=== PATIENT | female | born 2000 | race Caucasian/White ===

== ENCOUNTER 2020-04-20 23:24 | Emergency (ER) | payer OTHER ==
[~2020-04-20] VITALS: Ht 165.1 cm; Wt 56.3 kg
--- NOTE | 2020-04-21 00:23 | REPVR ---
PROCEDURE INFORMATION: Exam: CT Head Without Contrast Exam date and time: 04/20/2020 11:56 PM Age: 19 years old Clinical indication: Pain; Headache; Migraine; Aura effect not specified; Additional info: [facility] TECHNIQUE: Imaging protocol: Computed tomography of the head without contrast. Radiation optimization: All CT scans at this facility use at least one of these dose optimization techniques: automated exposure control; mA and/or kV adjustment per patient size (includes targeted exams where dose is matched to clinical indication); or iterative reconstruction. COMPARISON: No relevant prior studies available. FINDINGS: Brain: Normal. No hemorrhage. Unremarkable white matter. No mass effect. Ventricles: Normal. No ventriculomegaly. Bones/joints: Unremarkable. No acute fracture. Sinuses: Visualized sinuses are unremarkable. No fluid levels. Mastoid air cells: Visualized mastoid air cells are well aerated. Soft tissues: Unremarkable. IMPRESSION: No acute intracranial abnormality. Electronically signed by: Jason Vega On 04/21/2020 00:22:31 AM
[2020-04-21] MEDS ORDERED: KETOROLAC 60MG 2ML VIAL IM ONE (00:30)
[2020-04-21] MEDS ORDERED: KETO10TAB PO (01:45)
[2020-04-21 01:52] VITALS: BP 114/75
== END 2020-04-21 01:54 | disposition home or self-care (01) ==
LOC: M ED 23:24
DX: G43.909 Migraine, unspecified, not intractable, without status migrainosus (principal); F17.200 Nicotine dependence, unspecified, uncomplicated
CPT/HCPCS: 70450; 99283; J1885

== ENCOUNTER 2021-03-04 23:39 | Outpatient (CLI) | payer OTHER ==
[~2021-03-04] VITALS: Ht 162.6 cm; Wt 66.8 kg
[~2021-03-04 23:39] MED LIST: KETO10TAB PO
[2021-03-05] VITALS: BP 128/81
[2021-03-05] MEDS ORDERED: PRENTAB9 PO (00:22)
--- NOTE | 2021-03-05 02:18 | IPNPDOC ---
Subjective Date Seen The patient was seen on 03/05/21. Subjective Chief Complaint/HPI 20yo presenting at 39w6d by LMP c/w 1TM US with ALIX 12 Feb with complaint of increasing contraction pain. States she has had intermittent episodes of painful contractions that worsened this evening, and increased in frequency occurring about every 4 min. She otherwise denies LOF, VB or discharge. +GFM. General: Denies: ROS Unobtainable, Chills, Night Sweats, Fatigue, Malaise, Normal Appetite, Other Symptoms Constitutional: Denies: Chills, Fever, Malaise, Night Sweats, Weakness, Fatigue, Weight Loss, Lethargy, Other Eyes: Denies: Pain, Vision change Cardiovascular: Denies: Chest Pain, Palpitations, Orthopnea, Paroxysmal Noc. Dyspnea, Edema, Lt Headedness, Other Symptoms Gastrointestinal: Denies: Nausea, Vomiting, Abdominal Pain, Diarrhea, Cons tipation, Melena, Hematochezia, Other Symptoms Genitourinary: Denies: Dysuria, Frequency, Incontinence, Hematuria, Retention, Other Symptoms Neurological: Denies: Weakness, Numbness, Incoordination, Change in speech, Confusion, Seizures, Other Symptoms Objective Physical Examination General Exam: Positive: Alert, No Acute Distress Chest Exam: Positive: Normal air movement Heart Exam: Positive: Rate Normal Abdomen Exam: Positive: Other (gravid) Extremity Exam: Negative: Edema Other physical findings FHT: baseline initially in 140's, pt became tachycardic into 160's and had late deceleration at 0105. Continued monitoring x1 hr ith return to baseline in the 130's with mod variability and reactive. Paraje: ctx initially q2-3 min, decreasing to every 2-6 min while in triage SVE: 1-50/-2, membranes intact Assessment /Plan Assessment 20yo presenting at 39w6d for labor check. SVE 1-50/-2 with decreasing frequency and intensity of contractions while in triage. Offered recheck vs. D/c home with plan to return if contractions increase again. Pt electing to go home at this time. Return precautions given. Plan/VTE VTE Prophylaxis Ordered?: No VTE Exclusion Mechanical Proph: Other (triage visit) VS, I&O, 24H, Fishbone Vital Signs/I&O Vital Signs Date Time Temp Pulse Resp B/P (MAP) Pulse Ox O2 Delivery O2 Flow Rate FiO2 03/05/21 00:00 96.7 86 18 128/81 (97) NURA SILVEIRA M.D. Mar 05, 2021 02:18
== END 2021-03-05 02:14 | disposition home or self-care (01) ==
LOC: M LDO 23:39
PROVIDERS: ATTEND Obstetrics & Gynecology
DX: O47.1 False labor at or after 37 completed weeks of gestation (principal); Z3A.39 39 weeks gestation of pregnancy
CPT/HCPCS: 59025; G0378; G0463

== ENCOUNTER 2021-03-07 05:28 | Inpatient (IN) | payer OTHER ==
[2021-03-07] VITALS (16 sets, daily range): BP systolic 102–138; BP diastolic 57–82
[~2021-03-07 05:28] MED LIST changes: +PRENTAB9 PO
[2021-03-07] MEDS ORDERED: OXYTOCIN DRIP 30 UNITS in IV 1 EA IV PRN (07:10)
[2021-03-07] MEDS ORDERED: LIDOCAINE 1% MDV 20ML VIAL INFIL PRN (07:10)
--- NOTE | 2021-03-07 07:27 | HPEPDOC ---
Obstetrical History & Physical General Date of Admission Mar 07, 2021 at 07:11 History of Present Illness Ms. Amezquita is a 19yo at 40+2 presenting in early labor. She denied VB, LO F, decreased FM. She endorsed nausea. She denied diarrhea, cp, sob, f/c, urinary sx, corbett, visual changes. 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 Past Medical History Medical History migraines with aura varicella non-immune Surgical History: [place] teeth Family History Significant Family History: No pertinent family hx Social History Psychosocial History: No pertinent psych hx * Smoker: current smoker (vaping) Alcohol: Denies Drugs: denies Imunizations Tdap status: current Influenza Status: needs Allergies Coded Allergies: No Known Allergies (Unverified , 03/05/21) Medications Scheduled No.137/Iron/Folic Acd ( Vitamin Tablet) 1 Each Tablet, 1 TAB PO DAILY Physical Examination Physical Examination GENERAL: Alert and oriented times three. BREAST: . ABDOMEN: Gravid and non-tender to touch. FETUS: Is vertex (VTX) by sterile vaginal examination (SVE), fetus is vertex (VTX) by US HEART RATE: Regular rate and rhythm. LUNGS: Clear to auscultation (CTA). EXTREMITIES: No edema. Vital Signs/I&O Vital Signs Date Time Temp Pulse Resp B/P (MAP) Pulse Ox O2 Delivery O2 Flow Rate FiO2 03/07/21 05:33 98.2 73 18 130/60 (83) Laboratory Data 24H LABS Laboratory Tests 2 03/07/21 07:15: Serology Scanned Report Hepatitis B Testing Urine Culture: No Growth Pertinent Laboratoy Data Blood Type: O+ RBC Antibody Screen: Negative HIV: Negative Hepatitis B: Negative Rapid Plasma Reagin: Nonreactive Rubella: Immune Varicella: Nonreactive Chlamydia/Gonorrhea: Negative Group B Streptococcus: Negative Quad Screen Test: Declined Cystic Fibrosis: Declined Glucose Tolerance Test: 89 Anatomy Ultrasound Placenta Location: Anterior Normal Anatomy: Yes Estimated Weight (grams): 3100 Vaginal Examination Dilation: 5 cm Effacement: 90% Station: -2 Cervical Consistency: Soft Cervical Position: Middle Presentation: Cephalic presentation (by US) Assessment Variability: Decreased Accelerations: Present Decelerations: None Tocometer Contractions: Yes Frequency: regular Multi-drug resistant Organism: No history of MDRO Assessment/Plan Assessment Ms. Amezquita is a 19yo at 40+2 presenting in early labor. Her cervix changed from 3 to 5cm in 1.5h. CAT I NST. Normal VS. APC 1. varicella non-immune 2. migranes with aura 3. vaping during Rh pos. GBS neg. EFW 3100. Placenta anterior. Ceph by US. Plan Admit and orient. Senior Technical Trainer and consent. Diet: clears Group B Streptococcus (GBS) [negative]. Labs and intravenous (IV) per unit protocol. Counseled on Pitocin and induction of labor (IOL). Lactated Ringers (LR): PRN Anticipate [normal spontaneous delivery ()]. C-S as appropriate. PURA WILLOUGHBY DO Mar 07, 2021 07:27
[2021-03-07 07:40] LABS: HEMATOCRIT 35.7 % (36.0-47.0); HEMOGLOBIN 11.5 g/dl (12.0-15.5); MEAN CORPUSCULAR HEMOGLOBIN 30.5 pg (27.0-33.0); MEAN CORPUSCULAR HGB CONC 32.2 g/dl (32.0-36.5); MEAN CORPUSCULAR VOLUME 94.7 fl (80.0-96.0); PLATELET COUNT, AUTOMATED 317 10^3/uL (150-450); RED BLOOD COUNT 3.77 10^6/uL (4.00-5.40); WHITE BLOOD COUNT 11.8 10^3/uL (4.0-10.0)
[2021-03-07] MEDS ORDERED: ONDANSETRON 4MG/2ML VIAL IV SCH (08:00)
[2021-03-07] MEDS ORDERED: FENTANYL 2MCG/ML ROPIVACAINE 0.2% IN 0.9% NACL 100ML IVBAG As Ordered ONE (08:13)
[2021-03-07] MEDS ORDERED: EPIDURAL/PCA KEYS XX PRN (08:15)
[2021-03-07] MEDS ORDERED: ePHEDrine SULFATE 25 MG/5 ML(5MG/ML) SYRINGE IV PRN (08:15)
[2021-03-07] MEDS ORDERED: ONDANSETRON 4MG/2ML VIAL IV PRN (08:15)
[2021-03-07] MEDS ORDERED: diphenhydrAMINE 50MG/ML VIAL (J1200) IV PRN (08:15)
[2021-03-07] MEDS ORDERED: FENTANYL/ROPIVACAINE/NACL BAG 100 ML EPIDURAL SCH (08:15)
[2021-03-07] MEDS ORDERED: EPIDURAL COMMENT XX SCH (08:15)
[2021-03-07] MEDS ORDERED: REFRIGERATOR IV KEYS XX PRN (08:15)
[2021-03-07] MEDS ORDERED: LACTATED RINGER'S 1000 ML IV PRN (08:15)
[2021-03-07] MEDS ORDERED: NALOXONE INJ 0.4MG/1ML VIAL (J2310 PER 1MG) IV PRN (08:15)
[2021-03-07 09:33] LABS: CORD GAS ABE A -11.3; CORD GAS O2 SAT A 21.3 %; CORD GAS PCO2 A 53.8 mmHg; CORD GAS PH A 7.142 UNITS; CORD GAS PO2 A 16.6 mmHg; CORD GAS SBC A 14.2 MEQ/L; CORD GAS TCO2 A 19.6 MEQ/L
[2021-03-07 09:35] LABS: CORD GAS ABE V -8.9; CORD GAS HCO3 V 16.1 MEQ/L; CORD GAS O2 SAT V 81.8 %; CORD GAS PCO2 V 33.1 mmHg; CORD GAS PH V 7.306 UNITS; CORD GAS PO2 V 39.2 mmHg; CORD GAS SBC V 17.1 MEQ/L; CORD GAS TCO2 V 17.2 MEQ/L
[2021-03-07] MEDS ORDERED: ANUSOL HC CREAM 30GM TOP PRN (10:50)
[2021-03-07] MEDS ORDERED: ACETAMINOPHEN 500 MG TAB PO PRN (10:50)
[2021-03-07] MEDS ORDERED: ACETAMINOPHEN TAB 650MG DOSE (2X325MG) PO PRN (10:50)
[2021-03-07] MEDS ORDERED: DIBUCAINE 1% OINTMENT 30GM TOP PRN (10:50)
[2021-03-07] MEDS ORDERED: PROMETHAZINE 25 MG TAB PO PRN (10:50)
[2021-03-07] MEDS ORDERED: IBUPROFEN 600MG TAB PO PRN (10:50)
[2021-03-07] MEDS ORDERED: MEASLES,MUMPS,RUBELLA VACCINE INJ (MMR-II) (90707) SC SCH (10:50)
[2021-03-07] MEDS ORDERED: IBUPROFEN 800 MG TAB PO PRN (10:50)
[2021-03-07] MEDS ORDERED: METHYLERGONOVINE MALEATE 0.2 MG TAB PO PRN (10:50)
--- NOTE | 2021-03-07 18:17 | DNPDOC ---
[facility] Delivery Note Delivery Note Date of the procedure: 07 MAR 2021 Preoperative diagnosis: 1. 20 y/o at 40w2d 2. Active labor 3. GBS negative 4. O positive Postoperative diagnosis: 1. 20 y/o G1 now P1001 at 40w2d 2. Active labor 3. GBS negative 4. O positive 5. bradycardia 6. Nuchal cord x1 7. Bilateral periurethral lacerations 8. Right labial laceration 9. Second degree perineal laceration Procedure: VAVD Delivering Provider: VELMA Palafox, GERALD, BENJIE- Assistant Manager Of Operations Back-up: Dr. Dodie Andrew Anesthesia: Epidural EBL: 300 ml Specimens: Cord blood and cord gasses collected. Findings: Live female weighing 7 lb 4 oz, 3290 grams with Apgars of 9 and 9 at 1 and 5 minutes respectively. Complications: bradycardia Details of the procedure: The patient presented complaining of contractions and was found to be in active labor. Patient was 5 cm dilated and was then admitted to L&D. Labor progressed without Pitocin and membranes were ruptured spontaneously for clear fluid.. The patient progressed to fully dilated and entered the second stage of labor. heart tones were noted to be prolonged in the 60s-70s and Dr. Andrew was called to attend the delivery and to assess for VAVD vs pLTCS. While awaiting for Dr. Andrew, patient began to push. Once Dr. Andrew arrived the patient was assessed and consented and verbally agreed for a VAVD, at which point she began to push over an intact perineum. Please see the details of vacuum use in Dr. Rodrick napoles's note. The head was brought to using the vacuum by Dr. Andrew, at which point the vacuum was removed and I was able complete the delivery of the head. The nuchal cord x1 was noted. The rest of the infant was delivered. The infant was placed on maternal abdomen and the cord was doubly clamped and cut. The bacon skinner and NICU team were at the bedside and assessed the while on maternal abdomen. Cord blood was collected and a 3 vessel cord was noted. Manual exploration of the uterus was not performed. Uterine tone was firm. Perineum was inspected and bilateral periurethral lacerations, a right labial laceration, and second degree perineum were found. These were repaired with 2-0 chromic. Cervical exam was normal. Rectal exam was not noted. Sponge, instrument, and needle counts were correct. The patient tolerated the procedure well and is stable in recovery. Note was written and electronically signed by: VELMA Palafox CNM, BENJIE-ADRIANNA CHENG CNM Mar 07, 2021 10:35
[2021-03-07] MEDS: DOCUSATE SODIUM 100MG CAPSULE PO SCH (20:45)
[2021-03-08 06:00] VITALS: BP 112/70
[2021-03-08 07:25] LABS: HEMATOCRIT 29.1 % (36.0-47.0); HEMOGLOBIN 9.3 g/dl (12.0-15.5); MEAN CORPUSCULAR HEMOGLOBIN 30.8 pg (27.0-33.0); MEAN CORPUSCULAR VOLUME 96.4 fl (80.0-96.0); PLATELET COUNT, AUTOMATED 256 10^3/uL (150-450); RED BLOOD COUNT 3.02 10^6/uL (4.00-5.40); WHITE BLOOD COUNT 11.4 10^3/uL (4.0-10.0)
--- NOTE | 2021-03-08 07:34 | DNPDOC ---
[facility] Delivery Note Delivery Note OPERATIVE DELIVERY SUMMARY: Called to patient's room by GERALD Sanz due to FHT in 70's for several minutes. SVE C/C/+3. Patient quickly counseled on risks of procedure. position assessed and noted to be NANI. Vacuum applied along saggital suture, 2cm anterior to the posterior fontanel with careful attention t o avoid including maternal tissue. Suction applied to the green with onset of contractions. Gentle downward traction applied in conjunction with maternal pushing efforts, then gently rotated upward under pubic bone. Suction released in between each contraction. Maternal pushing efforts were very poor, however FHT auscultated in the 110's in between contractions, therefore continued efforts for vaginal delivery. Once head arrived at perineum, suction released and vacuum removed, and remainder of delivery completed by GERALD. One pop-off occurred during proceduer. See additional delivery note for further details. NURA SILVEIRA M.D. Mar 08, 2021 07:34
[2021-03-08] MEDS: PRENATAL VITAMINS CHEWABLE TABLET PO SCH (08:34)
[2021-03-08] MEDS: DOCUSATE SODIUM 100MG CAPSULE PO SCH ×2 (08:35→20:21)
[2021-03-08 18:56] VITALS: BP 116/75
[2021-03-09 06:18] VITALS: BP 120/59
--- NOTE | 2021-03-09 07:07 | OBDS ---
[facility] Obstetrical Discharge Sum. Obstetrical Discharge Summary Date: Mar 09, 2021 Delivery 20yo G1 now P1001 admitted in labor at term, progressed to complete and was noted to have bradycardia with poor maternal pushing efforts. Vacuum- assisted delivery performed as noted below. Details of the procedure: The patient presented complaining of contractions and was found to be in active labor. Patient was 5 cm dilated and was then admitted to L&D. Labor progressed without Pitocin and membranes were ruptured spontaneously for clear fluid.. The patient progressed to fully dilated and entered the second stage of labor. heart tones were noted to be prolonged in the 60s-70s and Dr. Andrew was called to attend the delivery and to assess for VAVD vs pLTCS. While awaiting for Dr. Andrew, patient began to push. Once Dr. Andrew arrived the patient was assessed and consented and verbally agreed for a VAVD, at which point she began to push over an intact perineum. Please see the details of vacuum use in Dr. Andrew's note. The head was brought to using the vacuum by Dr. Andrew, at which point the vacuum was removed and I was able complete the delivery of the head. The nuchal cord x1 was noted. The rest of the infant was delivered. The was placed on maternal abdomen and the cord was doubly clamped and cut. The environmental services technician and NICU team were at the bedside and assessed the while on maternal abdomen. Cord blood was collected and a 3 vessel cord was noted. Manual exploration of the uterus was not performed. Uterine tone was firm. Perineum was inspected and bilateral periurethral lacerations, a right labial laceration, and second degree perineum were found. These were repaired with 2-0 chromic. Cervical exam was normal. Rectal exam was not noted. Sponge, instrument, and needle counts were correct. The patient tolerated the procedure well and is stable in recovery. course uncomplicated. Patient ambulating, voiding without difficulty and tolerating regular diet. Reports minimal lochia. Breast pumping/bottle feeding and has minipill at home for contraception. PPD#2 exam: Vitals within normal limits Gen: AAOx3, NAD CV/Lungs: Regular rate, normal WOB Abdomen: U-2, firm Ext: no swelling or erythema Vital Signs Date Time Temp Pulse Resp B/P (MAP) Pulse Ox O2 Delivery O2 Flow Rate FiO2 7/16/21 06:18 98.8 75 20 120/59 (79) 03/08/21 18:56 97.3 73 16 116/75 (89) 98 Room Air 03/08/21 08:00 Room Air Current Medications Medications (Trade) Dose Ordered Sig/Hugo Route PRN Reason Start Time Stop Time Status Last Admin Dose Admin Acetaminophen (Tylenol Tab) 1,000 mg Q6HP PRN PO PAIN LEVEL 6-10 03/07/21 10:50 03/08/21 08:37 1,000 MG Docusate Sodium (Colace) 100 mg BID PO 03/07/21 21:00 03/08/21 20:21 100 MG Ibuprofen (Advil) 800 mg Q8HP PRN PO PAIN LEVEL 6-10 03/07/21 10:50 03/08/21 06:08 800 MG Prenat Multivit/ [place]/Iron/Folic Ac ( Vitamins) 1 tab DAILY PO 03/08/21 09:00 03/08/21 08:34 1 TAB A/P, Post Course List any complications Admission diagnosis: Labor at term Discharge diagnosis: same, s/p VAVD delivery Condition at Discharge: stable Discharge Instructions: home Activity: No heavy lifting and recommend pelvic rest x6wk Diet: regular Medications: motrin, tylenol prn pain Follow-up: 6wk PP visit NURA SILVEIRA M.D. Mar 09, 2021 07:07
[2021-03-09] MEDS: DOCUSATE SODIUM 100MG CAPSULE PO SCH (08:19)
[2021-03-09] MEDS: PRENATAL VITAMINS CHEWABLE TABLET PO SCH (08:19)
--- NOTE | 2021-03-09 11:20 | IPN ---
PROGRESS NOTE DATE: 03/08/2021 SUBJECTIVE: This lady is a 19-year-old, 2, now para 1, admitted at 40 and 2 weeks of gestation in early labor. She progressed in active labor, GBS negative, RH positive, had a prolonged bradycardia with a nuchal cord x1, had bilateral periurethral lacerations with a right labial laceration and a second degree perineal laceration. She progressed without Pitocin, delivered with a low vacuum a livebirth female , 7 lb, 4 oz, 3290 gm, Apgars of 9 and 9 in 1 and 5 minutes respectively. All the inspection of the vagina indicated the above named lacerations and tears to the vagina based on the delivery. All were repaired in the usual fashion. The uterus contracted well down under Pitocin, patient and baby tolerating procedure well. On her first day, we discussed phlebitis, cystitis, mastitis, endometritis and cellulitis, diet and exercise, pain management, perineal, breast and wound care. OBJECTIVE: The rest of the examination was unremarkable, normocephalic, atraumatic. Neck: Full range of motion. Pupils equal and reactive to light. Distal pulses are symmetric. No evidence of DVT, PE or superficial phlebitis. Chest is clear, bilateral bases, no wheezes or rhonchi. No CVA tenderness. Abdomen is soft. Four quadrant bowel sounds are noted. The perineum is intact. Uterus is 2 below. Lochia is moderate. Four quadrant bowel sounds are noted. No rashes, lesions or pruritus. No arthralgias, myalgias. No complaint of joint pain. No complaint of cough, wheeze, shortness of breath or dyspnea on exertion. No nausea, vomiting, diarrhea or constipation. No urgency or frequency. The patient is planning on discharge tomorrow, breast-feeding as well, mobilizing, passing gas and has no voice complaints. Her blood pressure today is 112/70, respirations 18, pulse 85 and temperature is 96.6. Her admitting hemoglobin was 11.5, hematocrit 35.7 and platelets were 317. Blood gases on the baby: The arterial was 7.14, base excess -11.3, venous pH 7.30, base excess -8.9. SUMMARY: Patient, the mother is doing well. Expectations are to machine pecan picker medications at [facility] on discharge and have a six week checkup with [facility]. All questions were answered, 20 minute discussion. [facility]
== END 2021-03-09 11:10 | disposition home or self-care (01) | DRG 768 ==
LOC: M LDO 05:28 → M LDI 07:11 → M OBS 13:49
PROVIDERS: ADMIT Obstetrics & Gynecology; ATTEND Obstetrics & Gynecology
PROC: 10D07Z6 Extraction of Products of Conception, Vacuum, Via Natural or Artificial Opening (ICD-10-PCS; principal; 2021-03-07)
PROC: 0UQM0ZZ Repair Vulva, Open Approach (ICD-10-PCS; 2021-03-07)
PROC: 0KQM0ZZ Repair Perineum Muscle, Open Approach (ICD-10-PCS; 2021-03-07)
PROC: 0HQ9XZZ Repair Perineum Skin, External Approach (ICD-10-PCS; 2021-03-07)
DX: O48.0 Post-term pregnancy (principal); Z37.0 Single live birth; Z3A.40 40 weeks gestation of pregnancy; O99.334 Smoking (tobacco) complicating childbirth; F17.290 Nicotine dependence, other tobacco product, uncomplicated; O76 Abnormality in fetal heart rate and rhythm complicating labor and delivery; O69.81X0 Labor and delivery complicated by cord around neck, without compression, not applicable or unspecified; O70.0 First degree perineal laceration during delivery; O71.82 Other specified trauma to perineum and vulva; O70.1 Second degree perineal laceration during delivery

== ENCOUNTER 2021-03-20 18:43 | Emergency (ER) | payer OTHER ==
[~2021-03-20] VITALS: Ht 162.6 cm; Wt 60.0 kg
[2021-03-20] MEDS ORDERED: IBUP-1114 PO (18:58)
[2021-03-20] MEDS ORDERED: ACET325T43 PO (18:58)
[2021-03-20 20:58] VITALS: BP 130/86
== END 2021-03-20 21:02 | disposition left against medical advice (07) ==
LOC: M ED 18:43
DX: Z53.21 Procedure and treatment not carried out due to patient leaving prior to being seen by health care provider (principal)

== ENCOUNTER 2021-05-03 14:00 | Emergency (ER) | payer OTHER ==
[~2021-05-03] VITALS: Ht 167.6 cm; Wt 57.2 kg
[~2021-05-03 14:00] MED LIST changes: +ACET325T43 PO; +IBUP-1114 PO
[2021-05-03 14:01] VITALS: BP 114/66
== END 2021-05-03 17:58 | disposition left against medical advice (07) ==
LOC: M ED 14:00
DX: Z53.21 Procedure and treatment not carried out due to patient leaving prior to being seen by health care provider (principal)